=== PATIENT | male | born 1945 | race Caucasian/White ===

== ENCOUNTER → 2023-05-17 14:21 | Outpatient (CLI) | payer OTHER, SELFPAY ==
--- NOTE | 2023-05-17 | DI.ECHO.S_ITS ---
[place] [facility]---------+ [facility] +---------+ : : [address] : [address] : : : : [id number] : : : : Phone: [phone]+ Echocardiogram Report + + :Name: TAYLOR HART Study Date: 05/17/2023 Height: 63 in : :[facility] ReadingLocation: Weight: 155 lb : : Gender: Male BSA: 1.7 m2 : :: 1945 Age: 77 yrs BP: 143/81 mmHg: :Reason For Study: Chronic Ischemic Heart Disease : :Ordering Physician: SERGIO, : :CATIA Performed By: Deirdre Rios : :Referring: CATIA HILL : + + Interpretation Summary Patient declined the use of Definity. The ejection fraction is estimated to be 20-25%. There is severe global hypokinesis of the left ventricle. There is mild mitral regurgitation. There is trace tricuspid regurgitation. The right ventricular systolic pressure is estimated to be at least 33 mmHg based on an estimated right atrial pressure of 3 mm Hg. Procedure: A two-dimensional transthoracic echocardiogram with color flow and Doppler was performed. The study quality was technically difficult. There is no prior echocardiogram noted for this patient. The patient was in normal sinus rhythm during the exam. Left Ventricle: The ejection fraction is estimated to be 20-25%. There is severe global hypokinesis of the left ventricle. Diastolic parameters suggest a relaxation abnormality of the left ventricle, consistent with probable normal filling pressures. Right Ventricle: The right ventricle is normal in size and function. Atria: The left atrium is mildly dilated. Right atrial size is normal. There is no Doppler evidence for an interatrial shunt. Mitral Valve: The mitral valve leaflets are mildly calcified. There is no mitral valve stenosis. There is mild mitral regurgitation. Aortic Valve: The aortic valve is trileaflet. The aortic valve opens well. There is mild aortic valve sclerosis. There is no aortic valve stenosis. There is trace aortic regurgitation. Tricuspid Valve: The tricuspid valve is normal. There is no tricuspid stenosis. There is trace tricuspid regurgitation. The right ventricular systolic pressure is estimated to be at least 33 mmHg based on an estimated right atrial pressure of 3 mm Hg. Pulmonic Valve: The pulmonic valve is not well visualized. There is no pulmonic valvular stenosis. There is trace pulmonic regurgitation. Great Vessels: The aortic root is normal size. The ascending aorta is normal in size. The pulmonary artery is normal size. The IVC is of normal diameter and collapses greater than 50% with a sniff. This suggests a low right atrial pressure of 3 mm Hg. Pericardium/ Pleura There is a trivial pericardial effusion noted. There is no pleural effusion. MMode/2D Measurements & Calculations LVIDd: 4.0 cm LVOT diam: 2.0 cm LVIDs: 3.9 cm Ao root diam: 2.8 cm FS: 2.5 % asc Aorta Diam: 2.9 cm IVSd: 1.3 cm LVPWd: 1.2 cm LV davila. diameter/BSA (cm/m^2): 2.3 LV sys. diameter/BSA (cm/m^2): 2.2 LA A2 area: 17.2 cm2 RA long axis: 4.1 cm LA A4 area: 17.2 cm2 RA area: 9.2 cm2 LA length (vol): 4.6 cm RA vol: 17.4 ml LA vol: 54.5 ml RA : 10.0 ml/m2 LA vol index: 31.4 ml/m2 RVD1 (basal): 3.1 cm Doppler Measurements & Calculations Ao V2 max: 116.5 cm/sec LVOT Max Haja: 52.5 cm/sec Ao V2 mean: 81.3 cm/sec LV V1 max P.1 mmHg Ao max P.0 mmHg LV V1 VTI: 11.0 cm Ao mean P.0 mmHg MEKA(I,D): 1.4 cm2 Ao V2 VTI: 25.5 cm MEKA(V,D): 1.4 cm2 sev ratio: 0.43 MEKA indexed to BSA (cm^2/m^2): 0.78 Lat Peak E' Haja: 10.0 cm/sec TR max haja: 274.0 cm/sec TR max P.0 mmHg PA V2 max: 79.1 cm/sec PA V2 mean: 51.3 cm/sec PA mean P.0 mmHg PA pr(Accel): 36.3 mmHg SV(LVOT): 34.6 ml AV VR_phl: 0.45 MEKA(VTI)/BSA_phl: 0.78 Reading Physician:05:11 PM
== END ==
PROVIDERS: Referring Provider Chiropractor; Visit Provider Chiropractor
DX: I25.9 Chronic ischemic heart disease, unspecified (principal); I08.0 Rheumatic disorders of both mitral and aortic valves
CPT/HCPCS: 93005; 93306